=== PATIENT | male | born 1960 | race Caucasian/White ===

== ENCOUNTER 2021-09-20 23:16 | Inpatient (IN) | payer OTHER ==
[2021-09-21 00:09] LABS: ALT (SGPT) 57 U/L (8-55); AST (SGOT) 32 U/L (5-34); Albumin 3.6 g/dL (3.4-4.8); Alkaline Phosphatase 67 U/L (40-110); Anion Gap 15 mmol/L (10-20); BUN (Urea Nitrogen) 16 mg/dL (8.4-25.7); Bilirubin, Total 0.6 mg/dL (0.2-1.2); CK (CPK) 108 U/L (30-200); Calc. Creatinine Clearance 0 mL/min (70-130); Carbon Dioxide 23 mmol/L (23-31); Chloride 103 mmol/L (98-107); Globulin 3.5 g/dL (2.4-3.5); Glucose 104 mg/dL (80-115); Potassium 4.1 mmol/L (3.5-5.1); Protein, Total 7.1 g/dL (5.8-8.1); Sodium 137 mmol/L (136-145)
[2021-09-21 00:19] LABS: #Eosinphils 0.2 10x3/uL (0.0-0.5); #Monocytes 1.1 10x3/uL (0.0-1.1); %Basophils 0.4 % (0.0-2.0); %Eosinophils 3.3 % (0.0-6.0); %Lymphocytes 12.5 % (18.0-47.0); Mean Corpuscular HGB CONC 32.7 g/dL (32.0-36.0); Mean Corpuscular Hemoglobin 32.3 pg (27.0-33.0); Mean Corpuscular Volume 98.5 fl (81.2-95.1); Mean Platelet Volume 10.5 fl (7.4-10.4); Platelet Count 341 10x3/uL (150-450); RBC Distribution Width 12.9 % (11.5-14.5); Red Blood Cell (RBC) Count 4.03 10x6/uL (4.32-5.72); White Blood Cell (WBC) Count 7.3 10x3/uL (3.5-10.5)
[2021-09-21 00:27] LABS: SARS-CoV-2 NAA Rapid Test Not Detected (NotDetected)
[2021-09-21] MEDS ORDERED: Cefepime 2 GM VIAL ONE ×2 (00:29→11:46)
[2021-09-21] MEDS ORDERED: Communication Order-Pharmacy FS PRN (02:20)
[2021-09-21] MEDS ORDERED: Acetaminophen 325 MG TAB PO PRN (02:23)
[2021-09-21] MEDS ORDERED: Senokot S 8.6-50 MG TAB PO PRN (02:23)
[2021-09-21] MEDS ORDERED: Albuterol Sulfate 2.5 mg/3 ml Neb EZPAP PRN (02:28)
[2021-09-21 03:18] VITALS: BMI 34.5
[2021-09-21 03:40] LABS: Magnesium 2.2 mg/dL (1.6-2.6)
[2021-09-21] MEDS: Lactated Ringer's 1,000 ML IV SCH ×2 (03:53→18:25)
[2021-09-21] MEDS: Levothyroxine Sodium 50 MCG TAB PO SCH (05:46)
[2021-09-21] MEDS: Mometasone/Formoterol 60 PUFF AER INH SCH ×2 (07:30→19:50)
[2021-09-21] MEDS ORDERED: Lisinopril 10 MG TAB PO SCH (09:00)
[2021-09-21] MEDS: Aspirin 81 mg Enteric Coated Tablet PO SCH (09:34)
[2021-09-21] MEDS: Potassium Chloride 20 MEQ TAB PO SCH (09:34)
[2021-09-21] MEDS: Enoxaparin Sodium 40 MG/0.4 ML SYRINGE SC SCH (09:35)
[2021-09-21] MEDS ORDERED: HYDROcodone/Acetaminophen 5/325 mg Tablet PO PRN (11:11)
[2021-09-21] MEDS ORDERED: Morphine 2 MG/ML VIAL SLOW IVP PRN (11:11)
[2021-09-21] MEDS: Docusate 100 MG CAP PO SCH ×2 (11:46→20:38)
[2021-09-21] MEDS: Cefepime 2 GM in Sodium Chloride 0.9% 100 ML IVPB SCH (11:46)
[2021-09-21] MEDS ORDERED: Sodium Chloride 0.9% 100 ML ONE (11:47)
[2021-09-21] MEDS: Atorvastatin Calcium 40 MG TAB PO SCH (20:38)
[2021-09-22] MEDS: Cefepime 2 GM in Sodium Chloride 0.9% 100 ML IVPB SCH ×2 (01:00→11:29)
[2021-09-22] MEDS ORDERED: VANCOMYCIN 2 GRAM/400 ML BAG 2 GM in Premix Bag 1 BAG IVPB SCH ×2 (01:00→20:00)
[2021-09-22] MEDS: Lactated Ringer's 1,000 ML IV SCH (01:11)
[2021-09-22 04:30] LABS: Anion Gap 12 mmol/L (10-20); BUN (Urea Nitrogen) 12 mg/dL (8.4-25.7); Calc. Creatinine Clearance 120 mL/min (70-130); Calcium 8.5 mg/dL (7.8-10.44); Carbon Dioxide 21 mmol/L (23-31); Chloride 107 mmol/L (98-107); Glucose 106 mg/dL (80-115); Potassium 4.4 mmol/L (3.5-5.1); Sodium 136 mmol/L (136-145)
[2021-09-22 04:32] LABS: #Eosinphils 0.2 10x3/uL (0.0-0.5); #Neutrophils 4.4 10x3/uL (1.5-8.4); %Basophils 0.3 % (0.0-2.0); %Eosinophils 2.8 % (0.0-6.0); %Lymphocytes 14.6 % (18.0-47.0); %Monocytes 14.9 % (0.0-10.0); %Neutrophils 66.9 % (40.0-75.0); Hemoglobin 11.7 g/dL (13.5-17.5); Mean Corpuscular HGB CONC 33.3 g/dL (32.0-36.0); Mean Corpuscular Hemoglobin 32.7 pg (27.0-33.0); Mean Platelet Volume 9.8 fl (7.4-10.4); Platelet Count 312 10x3/uL (150-450); RBC Distribution Width 13.2 % (11.5-14.5); Red Blood Cell (RBC) Count 3.58 10x6/uL (4.32-5.72); White Blood Cell (WBC) Count 6.5 10x3/uL (3.5-10.5)
[2021-09-22] MEDS: Mometasone/Formoterol 60 PUFF AER INH SCH ×2 (07:15→19:25)
[2021-09-22] MEDS: Levothyroxine Sodium 50 MCG TAB PO SCH (09:09)
[2021-09-22] MEDS: Aspirin 81 mg Enteric Coated Tablet PO SCH (09:10)
[2021-09-22] MEDS: Docusate 100 MG CAP PO SCH ×2 (09:10→21:10)
[2021-09-22] MEDS: Potassium Chloride 20 MEQ TAB PO SCH (09:10)
[2021-09-22] MEDS: Enoxaparin Sodium 40 MG/0.4 ML SYRINGE SC SCH (09:11)
[2021-09-22] MEDS: Atorvastatin Calcium 40 MG TAB PO SCH (21:09)
[2021-09-22] MEDS: Penicillin V Potassium 250 MG TAB PO SCH (21:09)
[2021-09-22] MEDS: Doxycycline 100 MG CAP PO SCH (21:09)
[2021-09-23 05:20] LABS: #Eosinphils 0.2 10x3/uL (0.0-0.5); #Monocytes 0.9 10x3/uL (0.0-1.1); #Neutrophils 4.3 10x3/uL (1.5-8.4); %Basophils 0.5 % (0.0-2.0); %Eosinophils 2.8 % (0.0-6.0); %Lymphocytes 14.4 % (18.0-47.0); %Monocytes 14.4 % (0.0-10.0); %Neutrophils 67.3 % (40.0-75.0); Mean Corpuscular HGB CONC 33.2 g/dL (32.0-36.0); Mean Corpuscular Hemoglobin 32.7 pg (27.0-33.0); Mean Corpuscular Volume 98.4 fl (81.2-95.1); Red Blood Cell (RBC) Count 3.67 10x6/uL (4.32-5.72); White Blood Cell (WBC) Count 6.4 10x3/uL (3.5-10.5)
[2021-09-23 05:34] LABS: Anion Gap 13 mmol/L (10-20); BUN (Urea Nitrogen) 10 mg/dL (8.4-25.7); Calc. Creatinine Clearance 128 mL/min (70-130); Calcium 8.7 mg/dL (7.8-10.44); Carbon Dioxide 22 mmol/L (23-31); Chloride 108 mmol/L (98-107); Glucose 109 mg/dL (80-115); Potassium 4.5 mmol/L (3.5-5.1); Sodium 138 mmol/L (136-145)
[2021-09-23 05:38] LABS: Platelet Count 356 10x3/uL (150-450)
[2021-09-23] MEDS: Levothyroxine Sodium 50 MCG TAB PO SCH (05:38)
[2021-09-23] MEDS: Lactated Ringer's 1,000 ML IV SCH ×2 (05:39→09:49)
[2021-09-23] MEDS: Doxycycline 100 MG CAP PO SCH (09:39)
[2021-09-23] MEDS: Potassium Chloride 20 MEQ TAB PO SCH (09:39)
[2021-09-23] MEDS: Docusate 100 MG CAP PO SCH (09:40)
[2021-09-23] MEDS: Enoxaparin Sodium 40 MG/0.4 ML SYRINGE SC SCH (09:40)
[2021-09-23] MEDS: Aspirin 81 mg Enteric Coated Tablet PO SCH (09:40)
[2021-09-23] MEDS: Penicillin V Potassium 250 MG TAB PO SCH ×3 (09:48→17:43)
[2021-09-23] MEDS: Mometasone/Formoterol 60 PUFF AER INH SCH (10:46)
[2021-09-23 12:31] VITALS: BP 117/76; TEMP 97.7
== END 2021-09-23 18:30 | DRG 603 ==
LOC: CSHERS 23:16 → CSHTELE 09-21 02:17
PROVIDERS: ADMIT Family Medicine; ATTEND Hospitalist
DX: L03.116 Cellulitis of left lower limb (principal); J44.1 Chronic obstructive pulmonary disease with (acute) exacerbation; N17.9 Acute kidney failure, unspecified; I10 Essential (primary) hypertension; E03.9 Hypothyroidism, unspecified; Z20.822 Contact with and (suspected) exposure to COVID-19; Z96.652 Presence of left artificial knee joint; E78.5 Hyperlipidemia, unspecified; E66.9 Obesity, unspecified; Z88.0 Allergy status to penicillin; Z88.7 Allergy status to serum and vaccine; Z79.82 Long term (current) use of aspirin; Z79.899 Other long term (current) drug therapy; Z68.34 Body mass index [BMI] 34.0-34.9, adult
CPT/HCPCS: 36415; 80048; 80053; 82550; 83605; 83735; 85025; 87040; 93005; 94664; 96365; 96367; J0692; J1650; J3370; J3490; J7120; U0002

== ENCOUNTER 2021-11-13 16:08 | Emergency (ER) | payer OTHER ==
[2021-11-13 16:54] LABS: Hemoglobin 14.7 g/dL (13.5-17.5); MDiff Complete? YES; Mean Corpuscular HGB CONC 33.2 g/dL (32.0-36.0); Mean Corpuscular Hemoglobin 32.6 pg (27.0-33.0); Mean Corpuscular Volume 98.2 fl (81.2-95.1); Mean Platelet Volume 10.4 fl (7.4-10.4); Platelet Count 244 10x3/uL (150-450); RBC Distribution Width 13.8 % (11.5-14.5); Red Blood Cell (RBC) Count 4.51 10x6/uL (4.32-5.72); White Blood Cell (WBC) Count 6.4 10x3/uL (3.5-10.5)
[2021-11-13 17:07] LABS: ALT (SGPT) 23 U/L (8-55); AST (SGOT) 22 U/L (5-34); Albumin 4.5 g/dL (3.4-4.8); Alkaline Phosphatase 84 U/L (40-110); Anion Gap 16 mmol/L (10-20); BUN (Urea Nitrogen) 15 mg/dL (8.4-25.7); Bilirubin, Total 0.8 mg/dL (0.2-1.2); Calc. Creatinine Clearance 0 mL/min (70-130); Calcium 9.3 mg/dL (7.8-10.44); Carbon Dioxide 23 mmol/L (23-31); Chloride 106 mmol/L (98-107); Globulin 3.1 g/dL (2.4-3.5); Glucose 97 mg/dL (80-115); Potassium 4.5 mmol/L (3.5-5.1); Protein, Total 7.6 g/dL (5.8-8.1); Sodium 140 mmol/L (136-145)
[2021-11-13 17:17] LABS: Eosinophils 1 % (0-10); Lymphocytes 28 % (21-51); Monocytes 11 % (0-10); Neutrophil 60 % (42-75); Platelet Morphology Comment Appears Adequate
[2021-11-13 19:26] LABS: SARS-CoV-2 NAA Rapid Test Not Detected (NotDetected)
[2021-11-13 19:29] LABS: Lactic Acid 1.4 mmol/L (0.5-2.2)
[2021-11-13] MEDS ORDERED: methylPREDNISolone Sod Succ/PF 125 MG/2 ML VIAL ONE (21:26)
[2021-11-13] MEDS ORDERED: diphenhydrAMINE 50 MG/ML VIAL ONE (21:26)
[2021-11-13] MEDS ORDERED: cefTRIAXone\\ROCEPHIN 1 GM VIAL ONE (21:26)
[2021-11-13] MEDS ORDERED: Famotidine/PF 20 mg/2ml Vial ONE (21:26)
[2021-11-13] MEDS ORDERED: Vancomycin HCl 1 GM in Sodium Chloride 0.9% 250 ML 250 ML IVPB SCH (21:30)
[2021-11-13] MEDS ORDERED: methylPREDNISolone Sod Succ/PF 125 MG/2 ML VIAL IVP SCH (21:30)
[2021-11-13] MEDS ORDERED: Famotidine/PF 20 mg/2ml Vial SLOW IVP SCH (21:30)
[2021-11-13] MEDS ORDERED: diphenhydrAMINE 50 MG/ML VIAL IVP SCH (21:30)
[2021-11-13] MEDS ORDERED: cefTRIAXone\\ROCEPHIN 1 GM in Sodium Chloride 0.9% 100 ML IVPB SCH (21:30)
== END 2021-11-14 00:16 | disposition short-term general hospital (02) ==
LOC: CSHERS 16:08
DX: L03.116 Cellulitis of left lower limb (principal); I12.9 Hypertensive chronic kidney disease with stage 1 through stage 4 chronic kidney disease, or unspecified chronic kidney disease; N18.9 Chronic kidney disease, unspecified; J44.9 Chronic obstructive pulmonary disease, unspecified; E03.9 Hypothyroidism, unspecified; E78.5 Hyperlipidemia, unspecified; K21.9 Gastro-esophageal reflux disease without esophagitis; M19.90 Unspecified osteoarthritis, unspecified site; Z20.822 Contact with and (suspected) exposure to COVID-19
CPT/HCPCS: 36415; 80053; 83605; 85025; 87040; 96365; 96366; 96367; 96375; J0696; J1200; J2930; J3370; S0028; U0002